=== PATIENT | male | born 1965 | race Caucasian/White ===

== ENCOUNTER → 2017-08-20 | Outpatient (CLI) | payer MEDICARE, MEDICAID ==
[~2017-08-20] MED LIST: AMBIEN 10 MG TA10 MG PO; ASPIR 8181 MG PO; CARVEDILOL12.5 MG PO; COUMADIN 2 MG TA2 M1 PO; LASIX 40 MG TAB40 M2 PO; LEVOTHYROXINE 0.1 MG PO; LIPITOR40 MG PO; NORCO 5-325 TA1 EACH PO; PACERONE 200 M200 MG PO; PRINIVIL20 M1 PO
== END ==
LOC: M.CT 15:00
DX: R42 Dizziness and giddiness (principal); E78.5 Hyperlipidemia, unspecified; I63.9 Cerebral infarction, unspecified; I11.0 Hypertensive heart disease with heart failure; I50.32 Chronic diastolic (congestive) heart failure; I48.0 Paroxysmal atrial fibrillation

== ENCOUNTER → 2019-05-03 | Outpatient (CLI) | payer OTHER ==
[2019-05-03 17:18] LABS: CALCIUM 8.6 mg/dL (8.5-10.1); POTASSIUM 4.1 mmol/L (3.5-5.1)
== END ==
LOC: M.LAB 16:34
PROVIDERS: Internal Medicine Cardiovascular Disease
DX: I10 Essential (primary) hypertension (principal)

== ENCOUNTER → 2019-07-12 | Outpatient (CLI) | payer OTHER ==
[2019-07-12 13:29] LABS: CALCIUM 8.4 mg/dL (8.5-10.1)
== END ==
LOC: M.LAB 13:07
PROVIDERS: Nurse Practitioner
DX: I10 Essential (primary) hypertension (principal)

== ENCOUNTER → 2019-08-18 | Outpatient (CLI) | payer OTHER ==
[2019-08-18 10:03] LABS: CALCIUM 8.9 mg/dL (8.5-10.1); CREATININE 0.9 mg/dL (0.6-1.3)
== END ==
LOC: M.LAB 09:16
PROVIDERS: Nurse Practitioner
DX: I10 Essential (primary) hypertension (principal)

== ENCOUNTER 2021-02-07 08:22 | Emergency (ER) | payer OTHER ==
[~2021-02-07] VITALS: Ht 175.3 cm; Wt 145.2 kg
[2021-02-07] MEDS ORDERED: WATER PILL (08:38)
[2021-02-07 09:24] LABS: ABSOLUTE BASOPHILS 0.1 thou/uL (0.0-0.2); ABSOLUTE EOSINOPHILS 0.3 thou/uL (0.0-0.7); ABSOLUTE LYMPHOCYTES 1.4 thou/uL (0.8-5.3); ABSOLUTE MONOCYTES 0.6 thou/uL (0.0-1.2); ABSOLUTE NEUTROPHILS 4.2 thou/uL (1.6-8.1); BASOPHILS 1.2 %; EOSINOPHILS 3.9 %; HEMATOCRIT 44.6 % (42.0-52.0); HEMOGLOBIN 15.2 gm/dL (14.0-18.0); LYMPHOCYTES 21.5 %; MCH 31.3 pg (26.0-34.0); MCV 92.1 fL (80.0-100.0); MONOCYTES 9.2 %; NUCLEATED RBCS 0 /100WBC; PLATELET COUNT* 236 thou/uL (150-400); POLYS 64.2 %; RBC 4.85 mil/uL (4.50-6.00); RDW-CV 13.1 % (10.5-14.5); WBC 6.6 thou/uL (4.0-11.0)
[2021-02-07 09:37] LABS: CALCIUM 9.2 mg/dL (8.5-10.1); CREATININE 1.2 mg/dL (0.6-1.3); POTASSIUM 3.9 mmol/L (3.5-5.1)
[2021-02-07 09:48] LABS: ALBUMIN 4.1 g/dL (3.4-5.0); TOTAL BILIRUBIN 0.8 mg/dL (<0.1-1.0); TOTAL PROTEIN 7.5 g/dL (6.4-8.2)
[2021-02-07 09:59] LABS: APTT 37.6 Seconds (25.0-31.3); INR 2.5; PROTIME 25.4 Seconds (9.20-11.50)
--- NOTE | 2021-02-07 10:25 | EKG ---
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: : 1965 Requested By: Conor Jernigan Order Number: [id number] MD: Gabino Mejia Measurements Intervals [place] Rate: 66 P: 11 WA: 255 QRS: -3 QRSD: 117 T: 224 QT: 475 QTc: 498 Interpretive Statements Sinus rhythm Prolonged WA interval Nonspecific intraventricular conduction delay Abnormal T, consider ischemia, diffuse leads Baseline wander in lead(s) V2 Compared to ECG 06/03/2016 09:50:38 Intraventricular conduction delay now present T-wave abnormality now present Possible ischemia now present Electronically Signed On 02-07-2021 10:25:16 CDT by Gabino Mejia [email or web address] <ELECTRONICALLY SIGNED> By: Gabino Mejia MD, [facility] 02/07/21 1025 0944 0944 Gabino Mejia MD, FAC /EPI
[2021-02-07 10:34] VITALS: BP 160/82
== END 2021-02-07 10:34 | disposition home or self-care (01) ==
LOC: M.ERS 08:22
PROVIDERS: Emergency Medicine
DX: E86.0 Dehydration (principal); R73.9 Hyperglycemia, unspecified; E03.9 Hypothyroidism, unspecified; I10 Essential (primary) hypertension; Z79.899 Other long term (current) drug therapy; Z86.73 Personal history of transient ischemic attack (TIA), and cerebral infarction without residual deficits